=== PATIENT | male | born 1995 | race American Indian/Alaskan Native ===

== ENCOUNTER 2020-01-01 10:17 | Emergency (ER) | payer OTHER ==
--- NOTE | 2020-01-01 11:33 | XRay Report ---
CHEST 2 VIEWS INDICATION / CLINICAL INFORMATION: fever and productive cough. COMPARISON: None available. FINDINGS: SUPPORT DEVICES: None. HEART / MEDIASTINUM: No significant abnormality. LUNGS / PLEURA: No significant pulmonary or pleural abnormality. .No pneumothorax. ADDITIONAL FINDINGS: No significant additional findings. IMPRESSION: 1. No acute findings. Signer Name: Gasper Cody MD Signed: 01/01/2020 11:29 AM Workstation Name: [id number]
[2020-01-01] MEDS ORDERED: ACETAMINOPHEN 500 MG TAB PO ONE (13:57)
--- NOTE | 2020-01-01 14:10 | Emergency Department Report ---
- General Chief Complaint: Upper Respiratory Infection Stated Complaint: FEVER/HEADACHE Time Seen by Provider: 01/01/20 13:39 Source: patient Mode of arrival: Ambulatory Limitations: No Limitations - History of Present Illness Initial Comments: This is a 24-year-old male who presents the emergency department chief complaint of cough, generalized weakness, malaise and myalgias over the past 2 days. He states started last night. He denies any sick contacts. He denies any recent travel. He denies any known past medical history, current medication use or known allergies to medications. He did not get a flu shot this year. He rates the severity of his symptoms as a 2 out of 10. There is associated shortness throat and headache. He denies any associated chest pain, shortness of breath, dizziness, nausea, vomiting, diarrhea, neck stiffness or any other associated symptoms. - Related Data Previous Rx's Medication Instructions Recorded Last Taken Type Benzonatate [Tessalon Perles] 100 mg PO Q8HR PRN #21 capsule 01/01/20 Unknown Rx Ibuprofen [Motrin 800 MG tab] 800 mg PO Q8HR PRN #30 tablet 01/01/20 Unknown Rx methylPREDNISolone [Medrol 4MG 4 mg PO ONCE #1 tab.ds.pk 01/01/20 Unknown Rx DOSEPAK (21 tabs)] Allergies Allergy/AdvReac Type Severity Reaction Status Date / Time No Known Allergies Allergy Verified 09/21/16 19:52 ED Review of Systems ROS: Stated complaint: FEVER/HEADACHE Other details as noted in HPI Comment: All other systems reviewed and negative Constitutional: see HPI, fever, malaise. denies: chills Eyes: denies: eye pain, eye discharge, vision change ENT: as per HPI, throat pain, congestion. denies: ear pain Respiratory: see HPI, cough. denies: shortness of breath, wheezing Cardiovascular: denies: chest pain, palpitations Endocrine: no symptoms reported Gastrointestinal: denies: abdominal pain, nausea, diarrhea Genitourinary: denies: urgency, dysuria Musculoskeletal: denies: back pain, joint swelling, arthralgia Skin: denies: rash, lesions Neurological: denies: headache, weakness, paresthesias Psychiatric: denies: anxiety, depression Hematological/Lymphatic: denies: easy bleeding, easy bruising ED Past Medical Hx - Past Medical History Previous Medical History?: No - Surgical History Past Surgical History?: No - Social History Smoking Status: Current Every Day Smoker Substance Use Type: Marijuana - Medications Home Medications: Home Medications Medication Instructions Recorded Confirmed Last Taken Type Benzonatate [Tessalon Perles] 100 mg PO Q8HR PRN #21 capsule 01/01/20 Unknown Rx Ibuprofen [Motrin 800 MG tab] 800 mg PO Q8HR PRN #30 tablet 01/01/20 Unknown Rx methylPREDNISolone [Medrol 4MG 4 mg PO ONCE #1 tab.ds.pk 01/01/20 Unknown Rx DOSEPAK (21 tabs)] ED Physical Exam - General Limitations: No Limitations General appearance: alert, in no apparent distress - Head Head exam: Present: atraumatic, normocephalic - Eye Eye exam: Present: normal appearance, PERRL, EOMI Pupils: Present: normal accommodation - ENT ENT exam: Present: normal exam, normal orophraynx, mucous membranes moist, TM's normal bilaterally - Neck Neck exam: Present: normal inspection, full ROM. Absent: tenderness, meningismus, lymphadenopathy - Respiratory Respiratory exam: Present: normal lung sounds bilaterally. Absent: respiratory distress, wheezes, rales, rhonchi, stridor - Cardiovascular Cardiovascular Exam: Present: regular rate, normal rhythm, normal heart sounds. Absent: systolic murmur, diastolic murmur, rubs, gallop - GI/Abdominal GI/Abdominal exam: Present: soft, normal bowel sounds. Absent: distended, tenderness, guarding, rebound, rigid - Rectal Rectal exam: Present: deferred - Extremities Exam Extremities exam: Present: normal inspection, full ROM, normal capillary refill. Absent: tenderness, calf tenderness (No posterior calf tenderness, negative Homans sign bilaterally.) - Back Exam Back exam: Present: normal inspection, full ROM. Absent: tenderness, CVA tenderness (R), CVA tenderness (L) - Neurological Exam Neurological exam: Present: alert, oriented X3, normal gait - Psychiatric Psychiatric exam: Present: normal affect, normal mood - Skin Skin exam: Present: warm, dry, intact, normal color. Absent: rash ED Course Vital Signs 01/01/20 11:00 Temperature 100.3 F H Pulse Rate 92 H Respiratory 18 Rate Blood Pressure 117/71 [Right] O2 Sat by Pulse 100 Oximetry ED Medical Decision Making - Lab Data Lab Results 01/01/20 Range/Units Unknown Influenza A (Rapid) Negative (Negative) Influenza B (Rapid) Negative (Negative) - Radiology Data Radiology results: report reviewed [facility] [address] [place] [address] XRay Report Signed Patient: LEONCIO FERRARO MR#: [id number] : 1995 Acct:[id number] Age/Sex: 24 / M ADM Date: 01/01/20 Loc: ED Attending Dr: Ordering Physician: ARUN MCCLELLAN NP Date of Service: 01/01/20 Procedure(s): XR chest routine 2V Accession Number(s): [id number] cc: ARUN MCCLELLAN NP Fluoro Time In Minutes: CHEST 2 VIEWS INDICATION / CLINICAL INFORMATION: fever and productive cough. COMPARISON: None available. FINDINGS: SUPPORT DEVICES: None. HEART / MEDIASTINUM: No significant abnormality. LUNGS / PLEURA: No significant pulmonary or pleural abnormality. .No pneumothorax. ADDITIONAL FINDINGS: No significant additional findings. IMPRESSION: 1. No acute findings. Signer Name: Gasper Cody MD Signed: 01/01/2020 11:29 AM Workstation Name: [id number] Transcribed By: SS Dictated By: Gasper Cody MD Electronically Authenticated By: Gasper Cody MD Signed Date/Time: 01/01/20 1129 - Medical Decision Making Patient presented emergency department with cough, congestion and generalized body aches and fever. Patient denies any recent sick contacts or travel. Flu swab was negative. Chest x-ray was clear. Patient had no clinical signs of pneumonia with a negative chest x-ray making this unlikely. Patient no clinical symptoms of meningitis with no nuchal rigidity. I plan to treat the patient with supportive care and follow-up with primary care doctor. Patient is PERC negative and low risk by Wells criteria for PE making this unlikely. Patient instructed to return to the ER with any changing or worsening symptoms. He verbalized understanding of the diagnosis, treatment plan and follow-up instructions. - Differential Diagnosis Influenza, pneumonia, meningitis Critical care attestation.: If time is entered above; I have spent that time in minutes in the direct care of this critically ill patient, excluding procedure time. ED Disposition Clinical Impression: Viral upper respiratory infection Disposition: DC-01 TO HOME OR SELFCARE Is pt being admited?: No Condition: Stable Instructions: Upper Respiratory Infection (ED) Prescriptions: methylPREDNISolone [Medrol 4MG DOSEPAK (21 tabs)] 4 mg PO ONCE #1 tab.ds.pk Ibuprofen [Motrin 800 MG tab] 800 mg PO Q8HR PRN #30 tablet PRN Reason: pain Benzonatate [Tessalon Perles] 100 mg PO Q8HR PRN #21 capsule PRN Reason: Cough Referrals: PRIMARY CARE, [Primary Care Provider] - 3-5 Days [facility] [Provider Group] - 3-5 Days Forms: Work/School Release Form(ED) Time of Disposition: 14:44
[2020-01-01 14:59] VITALS: BP 101/55
== END 2020-01-01 15:01 | disposition home or self-care (01) ==
LOC: ED 10:17
DX: J06.9 Acute upper respiratory infection, unspecified (principal); F17.200 Nicotine dependence, unspecified, uncomplicated; F12.90 Cannabis use, unspecified, uncomplicated; Z79.899 Other long term (current) drug therapy
CPT/HCPCS: 71046; 87400